=== PATIENT | male | born 2000 | race Caucasian/White ===

== ENCOUNTER 2018-07-13 22:23 | Emergency (ER) | payer SELFPAY ==
[2018-07-13] MEDS ORDERED: Lidocaine 1% with EPINEPHrine 1:100,000 20 ML MDV INJECT ONE (22:36)
[2018-07-13] MEDS ORDERED: Acetaminophen/HYDROcodone 325-5 MG Tab PO ONE (22:36)
[2018-07-13] MEDS ORDERED: Bacitracin Oint 1 GM U/D Packet TOP ONE (22:36)
[2018-07-13] MEDS ORDERED: Diphtheria,Pertussis(Acell),Tetanus Vaccine 0.5 ML Syringe IM ONE (22:36)
--- NOTE | 2018-07-13 22:40 | EDM.PDOC ---
ED HPI GENERAL MEDICAL PROBLEM - General Chief Complaint: Laceration Stated Complaint: PUNCHED HIS TV AND CUT UP HIS HAND Time Seen by Provider: 07/13/18 22:28 - History of Present Illness INITIAL COMMENTS - FREE TEXT/NARRATIVE: HISTORY AND PHYSICAL: History of present illness: The patient is a healthy 18-year-old man who is unsure of his last tetanus shot and presents with complaints of a laceration to his right hand in the webspace between the thumb and index finger that occurred after he punched a television set. The patient is left-hand dominant and says he was playing a competitive videogame when he got angry and punched a TV. Prior to this he was in his usual state of good health with no systemic complaints. He says that he has no other injuries and is able to move his digits including his thumb. Review of systems: As per history of present illness and below otherwise all systems reviewed and negative. Past medical history: As per history of present illness and as reviewed below otherwise noncontributory. Surgical history: As per history of present illness and as reviewed below otherwise noncontributory. Social history: No reported history of drug or alcohol abuse. Family history: As per history of present illness and as reviewed below otherwise noncontributory. Physical exam: General: Well-developed well-nourished man who is very anxious in the room but nontoxic and cooperative. Vital signs are noted by me HEENT: Atraumatic, normocephalic, negative for conjunctival pallor or scleral icterus, mucous membranes moist, throat clear, neck supple, nontender, trachea midline. Lungs: Clear to auscultation, breath sounds equal bilaterally, chest nontender. Heart: S1S2, regular and rhythm no overt murmurs Abdomen: Soft nondistended nontender and normoactive bowel sounds Pelvis: Deferred Genitourinary: Deferred. Rectal: Deferred. Extremities: Atraumatic, with full range of motion of all extremities with the exception of the right hand where there is a linear laceration in the webspace between the thumb and index finger that measures approximately 7 cm. There is a vessel near the first MCP that is losing but can be controlled with pressure. The patient has full flexion and extension of all digits and can oppose the thumb. There are no other injuries on the remainder of the digits but there are a few superficial paper cut-like lacerations seen at the base of the thumb without any foreign body bleeding or soft tissue swelling and there is good cap refill in all the digits. Neurovascular unremarkable. Neuro: Awake, alert, oriented. Cranial nerves II through XII unremarkable. Cerebellum unremarkable. Motor and sensory unremarkable throughout. Exam nonfocal. Diagnostics: X-ray right hand Therapeutics: Tdap, Ancef, wound care After the x-rays were reviewed by me and I did not quite yet have a formal reading I did notice the foreign bodies/glass in the laceration. The wound was irrigated by nursing and foreign bodies were identified and removed. Repeat x- ray was performed prior to suture closure. Repeat x-ray still shows foreign bodies and I discussed at length with the patient that as I cannot feel them or see them it is challenging for me to try to remove them. I discussed this with the hand surgeon at [facility], Dr. Medina at [phone]. He recommends that I put the patient on antibiotics close the wound and referred to either him or Dr. Farrell and that if need be those foreign bodies can be removed at a later date. He is aware that the wound is 7 cm in length and it does need to be closed so he feels that I should close it at this point. The patient is aware of this conversation. I will involve Dr. Farrell in the morning., Procedure note: After the wound was copiously irrigated by nursing and foreign bodies were removed, the wound was explored the if I could identify the retained foreign bodies ; I could not palpate or see any foreign objects .1% lidocaine with epinephrine was infused. There was a small vessel which was oozing at the site of the laceration just near the first MCP. Hemostasis was achieved with simple pressure and sutures were placed for a total number of #13 sutures of 4-0 chromic placed in a simple interrupted fashion. There were no complications the patient tolerated the procedure well. Bacitracin and a dressing was applied. Impression: Right hand laceration, retained foreign bodies Definitive disposition and diagnosis as appropriate pending reevaluation and review of above. right hand Pain Score (Numeric/FACES): 8 - Related Data Allergies Allergy/AdvReac Type Severity Reaction Status Date / Time No Known Allergies Allergy Verified 07/13/18 22:33 Home Meds: Home Meds . [No Known Home Meds] 07/13/18 [History] ED ROS GENERAL - Review of Systems Review Of Systems: ROS reveals no pertinent complaints other than HPI. ED EXAM, SKIN/RASH Exam: See Below (see dictation) Course - Vital Signs Last Recorded V/S: Last Vital Signs Temp 36.1 C 07/13/18 22:30 Pulse 92 07/13/18 22:30 Resp 18 07/13/18 22:30 BP 130/82 07/13/18 22:30 Pulse Ox 99 07/13/18 22:30 - Orders/Labs/Meds Orders: Active Orders 24 hr Category Date Time Status Vaccines to be Administered [RC] PER UNIT ROUTINE Care 07/13/18 22:36 Active Hand 2V Rt [CR] Stat Exams 07/13/18 23:40 Taken Hand Comp Min 3V Rt [CR] Stat Exams 07/13/18 22:36 Taken Meds: Medications Discontinued Medications Generic Name Dose Route Start Last Admin Trade Name Freq PRN Reason Stop Dose Admin Hydrocodone Bitart/Acetaminophen 1 tab 07/13/18 22:36 07/13/18 23:10 [place] 325-5 Mg PO 07/13/18 22:37 1 tab ONETIME ONE Administration Bacitracin 1 dose 07/13/18 22:36 07/13/18 22:56 Bacitracin Oint 1 Gm TOP 07/13/18 22:37 1 dose ONETIME ONE Administration Cephalexin 500 mg 07/13/18 22:51 07/13/18 23:03 Keflex PO 07/13/18 22:52 500 mg ONETIME ONE Administration Diphtheria/Tetanus/Acell Pertussis 0.5 ml 07/13/18 22:36 07/13/18 23:01 Adacel IM 07/13/18 22:37 0.5 ml .ONCE ONE Administration Lidocaine/Epinephrine 20 ml 07/13/18 22:36 07/13/18 22:56 Xylocaine 1% With Epinephrine 1:100,000 INJECT 07/13/18 22:37 20 ml ONETIME ONE Administration Ondansetron HCl 4 mg 07/13/18 23:21 07/13/18 23:32 Zofran Odt PO 07/13/18 23:22 4 mg ONETIME ONE Administration Departure - Departure Time of Disposition: 00:19 Disposition: Home, Self-Care 01 Condition: Good Clinical Impression: Retained foreign body Hand laceration Qualifiers: Encounter type: initial encounter Foreign body presence: with foreign body Laterality: right Qualified Code(s): S61.421A - Laceration with foreign body of right hand, initial encounter - Discharge Information Forms: ED Department Discharge Additional Instructions: The following information is given to patients seen in the emergency department who are being discharged to home. This information is to outline your options for follow-up care. We provide all patients seen in our emergency department with a follow-up referral. The need for follow-up, as well as the timing and circumstances, are variable depending upon the specifics of your emergency department visit. If you don't have a primary care physician on staff, we will provide you with a referral. We always advise you to contact your personal physician following an emergency department visit to inform them of the circumstance of the visit and for follow-up with them and/or the need for any referrals to a consulting specialist. The emergency department will also refer you to a specialist when appropriate. This referral assures that you have the opportunity for followup care with a specialist. All of these measure are taken in an effort to provide you with optimal care, which includes your followup. Under all circumstances we always encourage you to contact your private physician who remains a resource for coordinating your care. When calling for followup care, please make the office aware that this follow-up is from your recent emergency room visit. If for any reason you are refused follow-up, please contact the [facility] emergency department at and ask to speak to the emergency department charge nurse. [facility] Specialty clinic-Plastic Surgery and Hand Surgery Professional [address] [address] Keep the dressing was placed on in the ED for the next 24 hours then remove and cleanse with mild soap and water pat dry and apply bacitracin or Neosporin. Please take antibiotics until they're finished and use [id number] Tylenol and ibuprofen for pain. Elevate the hand as much as possible. Please contact of the hand specialist for reevaluation and further care as we discussed in the next 1-2 days. The sutures that were placed will dissolve - My Orders Last 24 Hours: My Active Orders 07/13/18 22:36 Vaccines to be Administered [RC] PER UNIT ROUTINE Hand Comp Min 3V Rt [CR] Stat 07/13/18 23:40 Hand 2V Rt [CR] Stat - Assessment/Plan Last 24 Hours: My Active Orders 07/13/18 22:36 Vaccines to be Administered [RC] PER UNIT ROUTINE Hand Comp Min 3V Rt [CR] Stat 07/13/18 23:40 Hand 2V Rt [CR] Stat
[2018-07-13] MEDS ORDERED: Cephalexin 500 MG Cap PO ONE (22:51)
[2018-07-13] MEDS ORDERED: Ondansetron 4 MG Tab.DIS PO ONE (23:21)
--- NOTE | 2018-07-14 13:07 | CR ---
EXAM DATE: 07/13/18 PATIENT'S AGE: 18 Patient: CHERELLE NELSON Facility: [place], [place] Site . Site : 2000 Study: XRay Extremity Right [id number]/8/2019 10:57:57 PM Ordering Physician: Doctor Wright Final Report: Indication: Injury and pain Technique: Right hand 3 views Comparison: None Findings/Impression: Bones: Alignment is normal. No fractures or bone lesions. Joint spaces: Unremarkable. Soft tissues: Multiple small glass fragments are in the soft tissues between the 1st and 2nd metacarpals. Dictated by Jj Gee MD @ Jul 13 2018 11:31PM (Electronic Signature) Report Signed by Proxy. REGIS
--- NOTE | 2018-07-14 13:09 | CR ---
EXAM DATE: 07/13/18 PATIENT'S AGE: 18 Patient: CHERELLE NELSON Facility: [place], [place] Site . Site : 2000 Study: XRay Extremity Right [id number]/8/[id number] 11:59:49 PM Ordering Physician: Keshia Nam Final Report: Indication: Injury, foreign body Technique: Right hand 1 views Comparison: July 13, 2018 Findings/Impression: Multiple small foreign bodies remain in the soft tissues between the 1st and 2nd metacarpals. Remainder of the exam is unremarkable and unchanged. Dictated by Jj Gee MD @ Jul 14 2018 12:19AM (Electronic Signature) Report Signed by Proxy. REGIS
== END 2018-07-14 00:25 | disposition home or self-care (01) ==
LOC: MW.ED 22:23
DX: S61.421A Laceration with foreign body of right hand, initial encounter (principal); Z23 Encounter for immunization; W26.8XXA Contact with other sharp object(s), not elsewhere classified, initial encounter
CPT/HCPCS: 12002; 73120; 73130; 90471; 90715; 99283; A9270

== ENCOUNTER 2018-07-16 15:33 | Emergency (ER) | payer SELFPAY ==
--- NOTE | 2018-07-16 16:06 | EDM.PDOC ---
ED HPI GENERAL MEDICAL PROBLEM - General Chief Complaint: Wound Recheck Stated Complaint: STITCHES CAME OUT Time Seen by Provider: 07/16/18 15:42 Source of Information: Reports: Patient History Limitations: Reports: No Limitations - History of Present Illness INITIAL COMMENTS - FREE TEXT/NARRATIVE: History of present illness: []Patient had laceration of his hand repaired on July 13 and last night 2 stitches came out. Patient is here for wound check. Review of systems: As per history of present illness and below otherwise all systems reviewed and negative. Past medical history: As per history of present illness and as reviewed below otherwise noncontributory. Surgical history: As per history of present illness and as reviewed below otherwise noncontributory. Social history: No reported history of drug or alcohol abuse. Family history: As per history of present illness and as reviewed below otherwise noncontributory. Physical exam: General: Well developed, well nourished in NAD HEENT: Atraumatic, normocephalic, pupils reactive, negative for conjunctival pallor or scleral icterus, mucous membranes moist, throat clear, neck supple, nontender, trachea midline. Lungs: Clear to auscultation, breath sounds equal bilaterally, chest nontender. Heart: S1S2, regular, negative for clicks, rubs, or JVD. Abdomen: NABS, Soft, nondistended, nontender. Negative for masses or hepatosplenomegaly. Negative for costovertebral tenderness. Pelvis: Stable nontender. Genitourinary: Deferred. Rectal: Deferred. Extremities: Right hand laceration without signs of infection, active bleeding or purulent drainage. Wound is intact, negative for cords or calf pain. Neurovascular unremarkable. Neuro: Awake, alert, oriented. Cranial nerves II through XII unremarkable. Cerebellum unremarkable. Motor and sensory unremarkable throughout. Exam nonfocal. Skin:warm and dry Diagnostics: None Therapeutics: Wound cleaned and redressed ED Course: Unremarkable Impression: Wound check Prescriptions: None Plan: Follow-up with Dr. Farrell for next available appointment Definitive disposition and diagnosis as appropriate pending reevaluation and review of above. - Related Data Allergies Allergy/AdvReac Type Severity Reaction Status Date / Time No Known Allergies Allergy Verified 07/16/18 15:49 Home Meds: Home Meds . [No Known Home Meds] 07/13/18 [History] Past Medical History HEENT History: Reports: None Cardiovascular History: Reports: None Respiratory History: Reports: None Gastrointestinal History: Reports: None Genitourinary History: Reports: None Musculoskeletal History: Reports: None Neurological History: Reports: None Psychiatric History: Reports: None Endocrine/Metabolic History: Reports: None Hematologic History: Reports: None Immunologic History: Reports: None Oncologic (Cancer) History: Reports: None Dermatologic History: Reports: None - Infectious Disease History Infectious Disease History: Reports: None - Past Surgical History Head Surgeries/Procedures: Reports: None HEENT Surgical History: Reports: None Cardiovascular Surgical History: Reports: None Respiratory Surgical History: Reports: None GI Surgical History: Reports: None Male Surgical History: Reports: None Endocrine Surgical History: Reports: None Neurological Surgical History: Reports: None Musculoskeletal Surgical History: Reports: None Oncologic Surgical History: Reports: None Dermatological Surgical History: Reports: None Social & Family History - Family History Family Medical History: Noncontributory - Tobacco Use Smoking Status *Q: Former Smoker Used Tobacco, but Quit: Yes Month/Year Tobacco Last Used: 1 month - Caffeine Use Caffeine Use: Reports: Soda - Recreational Drug Use Recreational Drug Use: No Review of Systems - Review of Systems Review Of Systems: ROS reveals no pertinent complaints other than HPI. ED EXAM, GENERAL - Physical Exam Exam: See Below (See history of present illness) Course - Vital Signs Last Recorded V/S: Last Vital Signs Temp 97.8 F 07/16/18 15:47 Pulse 75 07/16/18 15:47 Resp 18 07/16/18 15:47 BP 134/84 07/16/18 15:47 Pulse Ox 98 07/16/18 15:47 Departure - Departure Time of Disposition: 16:13 Disposition: Home, Self-Care 01 Condition: Good Clinical Impression: Visit for wound check - Discharge Information *PRESCRIPTION DRUG MONITORING PROGRAM REVIEWED*: No *COPY OF PRESCRIPTION DRUG MONITORING REPORT IN PATIENT MITA: No Forms: ED Department Discharge Additional Instructions: The following information is given to patients seen in the emergency department who are being discharged to home. This information is to outline your options for follow-up care. We provide all patients seen in our emergency department with a follow-up referral. The need for follow-up, as well as the timing and circumstances, are variable depending upon the specifics of your emergency department visit. If you don't have a primary care physician on staff, we will provide you with a referral. We always advise you to contact your personal physician following an emergency department visit to inform them of the circumstance of the visit and for follow-up with them and/or the need for any referrals to a consulting specialist. The emergency department will also refer you to a specialist when appropriate. This referral assures that you have the opportunity for follow-up care with a specialist. All of these measure are taken in an effort to provide you with optimal care, which includes your follow-up. Under all circumstances we always encourage you to contact your private physician who remains a resource for coordinating your care. When calling for follow-up care, please make the office aware that this follow-up is from your recent emergency room visit. If for any reason you are refused follow-up, please contact the [facility] Emergency Department at and asked to speak to the emergency department charge nurse. Follow-up with Dr. Farrell call for appointment [facility] Specialty Care - Plastic Surgery Professional Building [address] [place] [address], [address] [place] [address]
== END 2018-07-16 16:28 | disposition home or self-care (01) ==
LOC: MW.ED 15:33
DX: S61.421D Laceration with foreign body of right hand, subsequent encounter (principal); W26.8XXD Contact with other sharp object(s), not elsewhere classified, subsequent encounter; Z87.891 Personal history of nicotine dependence
CPT/HCPCS: 99282